=== PATIENT | male | born 1955 | race African-American/Black ===

== ENCOUNTER 2016-09-04 06:58 | Inpatient (IN) | payer MEDICARE, OTHER ==
[~2016-09-04 06:58] MED LIST: 1-ME1LIQ PO; CARV12.52 PO; HYDR100T2 PO; LISI30TA44 PO; NEPHRO PO; NIFE1TAB86 PO; RANI150T PO; REST30CA PO; SEVEL800 PO; VIAG50TA PO; VITA50TA3 PO; ZEPATIER PO
[2016-09-04 09:11] VITALS: BP 134/71; PULSE 61; RESP 18; TEMP 98.5; O2SAT 98
[2016-09-04] MEDS ORDERED: diphenhydrAMINE HCL 50 MG CAP PO PRN (09:15)
[2016-09-04] MEDS ORDERED: MAGNESIUM HYDROXIDE SUSP 30 ML CUP PO PRN (09:15)
[2016-09-04] MEDS ORDERED: BENZTROPINE MESYLATE 2 MG/2 ML VIAL IM PRN (09:15)
[2016-09-04] MEDS ORDERED: LORazepam 0.5 MG TAB PO PRN (09:15)
[2016-09-04] MEDS ORDERED: LORazepam 2 MG/ML VIAL IM PRN (09:15)
[2016-09-04] MEDS ORDERED: ALUMINUM/MAGNESIUM/SIMETH 30 ML CUP PO PRN (09:15)
[2016-09-04] MEDS ORDERED: BENZTROPINE MESYLATE 1 MG TAB PO PRN (09:15)
[2016-09-04] MEDS ORDERED: ACETAMINOPHEN 325 MG TAB PO PRN ×2 (09:15→15:30)
[2016-09-04] MEDS: hydrALAZINE HCL 100 MG TAB PO SCH ×3 (11:35→19:22)
[2016-09-04] MEDS: CARVEDILOL 12.5 MG TAB PO SCH ×2 (11:36→19:23)
[2016-09-04] MEDS: SEVELAMER CARBONATE 800 MG TAB PO SCH ×2 (11:37→19:22)
[2016-09-04] MEDS ORDERED: SODIUM CHLOR 0.9% 1000 ML INJ 1,000 ML IV PRN ×3 (15:24)
[2016-09-04] MEDS ORDERED: ALBUMIN HUMAN 25% 25 GM/100 ML BAGP IV PRN (15:30)
[2016-09-04] MEDS ORDERED: hydrOXYzine HCL 25 MG TAB PO PRN (15:30)
[2016-09-04] MEDS ORDERED: NITROGLYCERIN 0.4 MG SL 25 TABS/BTL SL PRN (15:30)
[2016-09-04] MEDS ORDERED: HEPARIN SODIUM - IV 10,000 UNITS/10 ML VIAL IVF PRN (15:30)
[2016-09-04] MEDS ORDERED: GENTAMICIN SULFATE (DIALYSIS USE ONLY) 20 MG/2 ML VIAL IV PRN (15:30)
[2016-09-04] MEDS ORDERED: ONDANSETRON HCL 4 MG/2 ML VIAL IV PRN (15:30)
[2016-09-04] MEDS ORDERED: GELATIN 12 MM/7 MM FOAM TOP PRN (15:30)
[2016-09-04] MEDS ORDERED: diphenhydrAMINE HCL 25 MG CAP PO PRN (15:30)
[2016-09-04] MEDS ORDERED: cloNIDine HCL 0.1 MG TAB PO PRN (15:30)
[2016-09-04] MEDS ORDERED: HEPARIN SODIUM - IV 10,000 UNITS/10 ML VIAL PRN (15:30)
[2016-09-04] MEDS ORDERED: MANNITOL 12.5 GM/50 ML VIAL IV PRN (15:30)
[2016-09-04] MEDS ORDERED: SODIUM CHLORIDE 0.9% FLUSH 10 ML FLUSH IV FLUSH PRN (15:30)
--- NOTE | 2016-09-04 15:31 | HHI.HP ---
Provisional Diagnosis Admission Date Sep 04, 2016 at 08:46 Helen I. 1. Major depressive disorder, single episode, moderate 2. Unspecified anxiety disorder Helen II. Deferred Helen V. GAF 45 presently Certification of Person's Competence To Provide Express and Informed Consent I have personally examined Marques Astorga , a person being served at [facility] on, Sep 04, 2016 15:10. Express and informed consent means consent voluntarily given in writing, by a competent person, after sufficient explanation and disclosure of the subject matter involved to enable the person to make a knowing and willful decision without any element of force, fraud, deceit, duress, or other form of constraint or coercion. This person is 18 years of age or older, is not now known to be incompetent to consent to treatment with a guardian advocate, and does not have a health care surrogate or proxy currently making medical treatment decisions. I have found this person to be one of the following: [x] Competent to provide express and informed consent, as defined above, for voluntary admission to this facility and is competent to provide express and informed consent for treatment. He/she has the consistent capacity to make well reasoned, willful, and knowing decisions concerning his or her medical or mental health treatment. The person fully and consistently understands the purpose of the admission for examination/placement and is fully capable of personally exercising all rights assured under [place] Incompetent to provide express and informed consent to voluntary admission, and this is incompetent to provide express and informed consent to treatment. The person must be transferred to involuntary status and a petition for a guardian advocate filed with the Circuit Court. [] Refusing to provide express and informed consent to voluntary admission but is competent to provide express and informed consent for treatment. The person must be discharged or transferred to involuntary status. Form shall be completed within 24 hours of a person's arrival at the receiving facility and filed in the clinical record of each person: 1. Admitted on a voluntary basis 2. Permitted to provide express and informed consent to his/her own treatment 3. Allowed to transfer from involuntary to voluntary status 4. Prior to permitting a person to consent to his or her own treatment after having been previously found incompetent to consent to treatment. History of Present Illness Capacity: Has Capacity HPI Mr. Astorga is a 61-year-old male with a reported history of anxiety who presents in transfer from [facility] under a Johnson act alleging suicidal ideation. Documentation from [facility] reviewed. The patient presented there complaining of 3 days of suicidal ideation. Reviewing our own electronic medical record, I see no prior psychiatric contact within our system. Patient seen and examined. Chart reviewed. Case discussed with nursing staff. On my examination today, the patient says that he has been feeling increasingly depressed since going on dialysis in 2006. He says that he feels "stuck." He endorses fatigue. Anhedonia present. Sleep disrupted. Denies SI/ HI at this time. Remains hopeful about the future. Also describes anxiety, "like I'm shaking on the inside." No panic. Tried Ativan PRN but did not find it helpful. No AVH. No psychotic symptoms. Remainder of the psychiatric ROS is negative. Complains of chronic back pain. Otherwise no physical complaints. Past psychiatric history: The patient reports a history of anxiety. He has previously followed with a Dr. Taylor at the [place]. He apparently briefly tried Zoloft but didn't like how it made him feel and has not followed up for further medication management. He denies any history of psychiatric admissions. Denies any history of suicide attempts. Family history: Patient denies a family history of serious mental illness, substance use disorder or suicide. Chemical dependency history: The patient denies any history of abuse of drugs or alcohol. Social history: The patient is from [place]. 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 He is also 100% service connected having served in the [employer] He says that his renal disease is thought to be related to contaminated water he had a camp [facility]. . No children. No legal issues. He is a [employer]. No reported access to guns or firearms. Review of Systems Except as stated in HPI: all other systems reviewed are Neg Past Psych History Psychological trauma history No reported trauma history to me Violence risk - others (6 mos) Lower imminent risk. No homicidal ideation. Violence risk - self (6 mos) Indeterminate. Recent suicidal ideation, now apparently resolved. However, patient remains depressed. Substance Abuse History Drugs/Alcohol past 12 months See above. Past Family Social History Coded Allergies: Percocet (Verified Adverse Reaction, Intermediate, Itching, 09/10/15) Past Medical History Includes a history of end-stage renal disease on Wednesday, Wednesday, Wednesday hemodialysis. See electronic medical record Reported Medications [Zepatier] No Conflict Check Po Daily ELBASVIR/GRAZOPREVIR 50/100MG PT TAKES MED DAILY FOR HEP C PROTOCOL 09/06/15 Sevelamer Carbonate (Renvela)800 Mg [id number] Mg PO TID *TAKE WITH MEALS* 09/06/15 Sildenafil Citrate (Viagra)50 Mg Tab50 Mg PO DIRECTED 09/06/15 Ranitidine 150 mg 150 Mg Tab1 Tab PO BID PRN (UPSET STOMACH) 09/06/15 Vitamin B Cmplx/Vit C/Folic Ac (Nephro-Angela Rx)1 Cap Tab1 Cap PO DAILY 09/06/15 Temazepam 30 mg (Restoril 30 mg)30 Mg Cap1 Cap PO HS 09/06/15 Pyridoxine Hcl (Vit B-6)50 Mg Tab50 Mg PO DAILY 09/06/15 Carvedilol 12.5 mg 12.5 Mg Tab2 Tab PO BID 09/06/15 1-Methyl 2-Pyrrolidone (Bulk) (1-Methyl 2-Pyrrolidinone)10 Mg Tab1 Tab PO DAILY 09/06/15 Nifedipine (Nifedipine Er)60 Mg Tab60 Mg PO DAILY 09/06/15 Lisinopril 30 mg 30 Mg Tab1 Tab PO DAILY 09/06/15 Hydralazine Hcl (Hydralazine HCl)100 Mg [id number] Mg PO Q8 09/06/15 Current Medications Medications (Trade) Dose Ordered Sig/Humera Route Start Time Stop Time Status Last Admin (Ativan) 0.5 mg Q12H PRN PO 09/04/16 09:15 09/04/16 11:55 (Ativan Inj) 0.5 mg Q12H PRN IM 09/04/16 09:15 (Benadryl) 50 mg HS PRN PO 09/04/16 09:15 (Tylenol) 650 mg Q4H PRN PO 09/04/16 09:15 (Milk Of Magnesia Liq) 30 ml DAILY PRN PO 09/04/16 09:15 (Mag-Al Plus Susp Liq) 30 ml Q6H PRN PO 09/04/16 09:15 (Habitrol 21 Mg Patch.24 Hr) 1 patch DAILY T-DERMAL 09/05/16 09:00 (Cogentin) 1 mg Q12H PRN PO 09/04/16 09:15 (Cogentin Inj) 1 mg Q12H PRN IM 09/04/16 09:15 Miscellaneous Information 1 DAILY T-DERMAL 09/06/16 09:00 (Coreg) 25 mg BID PO 09/04/16 21:00 (Apresoline) 100 mg Q8H PO 09/04/16 10:00 09/04/16 11:35 (Procardia Xl) 60 mg DAILY PO 09/05/16 09:00 (Vitamin B6) 50 mg DAILY PO 09/05/16 09:00 (Renvela) 800 mg TID PO 09/04/16 13:00 09/04/16 11:37 (Restoril) 30 mg HS PO 09/04/16 21:00 (Nephrocaps) 1 cap DAILY PO 09/05/16 09:00 (Prinivil) 30 mg DAILY PO 09/05/16 09:00 Patient's Strengths (min. 2) In a monitored setting. Verbally fluent. Physical Exam Physical exam completed by ED provider at outside hospital. On my examination today, the patient appears to be in mild distress due to back pain. No abnormal motor movements noted. Labs and vitals reviewed: Vital Signs Vital Signs Date Time Temp Pulse Resp B/P Pulse Ox O2 Delivery O2 Flow Rate FiO2 09/04/16 09:11 98.5 61 18 134/71 98 Lab Results Labs from outside hospital reviewed: CMP reveals creatinine of 13.24, BUN of 60 and alkaline phosphatase of 157. CBC reveals hemoglobin of 11.6. Alcohol level undetectable. Patient is anuric and so could not provide urine for urine toxicology. Mental Status Examination Patient is casually dressed. He is well groomed. He is awake and alert and oriented to person and hospital at least. No evidence of delirium. No motor abnormalities noted. Speech is within normal limits for rate, tone and volume. Language and fund of knowledge seemed average. Focus and concentration intact. Memory grossly intact on clinical exam. Mood depressed and affect restricted. Thought process linear. No loosening of associations. No delusions elicited. Denies audiovisual hallucinations. Denies suicidal or homicidal ideation, intent or plan. Insight and judgment are fair. Assessment & Plan Problem List: (1) Major depressive disorder, single episode, moderate ICD Code: F32.1 (2) Anxiety disorder ICD Code: F41.9 Assessment & Plan This is a 61-year-old Brittani male with psychiatric history as detailed above who presents in transfer from outside hospital under a Johnson act. On my examination today, the patient reports worsening depression since he was forced to go onto hemodialysis about 6 years ago. He has previously been treated for anxiety but never for depression. He endorses recent suicidal ideation, although he denies any suicidal ideation now. Patient requires psychiatric admission at this time for observation and stabilization. Admit inpatient. Voluntary status. Consult to nephrology and to the hospitalist for management of his chronic medical issues. For low mood, start Remeron 7.5mg qHS given issues with sleep. If ineffective, might consider SNRI or TCA given chronic pain issues. Renally dosed Atarax as needed for anxiety. Vitals every shift. Counselor to see. Disposition planning. Estimated length of stay: 3-5 days. Discharge Planning Pending stabilization Request HC Surrog/Guard Advoc?: No Problem Qualifiers (1) Anxiety disorder: Qualified Code: F41.9 - Anxiety disorder, unspecified type Karlo Tiwari MD Sep 04, 2016 15:30
[2016-09-04] MEDS ORDERED: PILL SPLITTER OTHER PRN (15:45)
--- NOTE | 2016-09-04 17:09 | MB ---
cc: PEEWEE SIMPSON MD DATE OF CONSULTATION: 09/04/2016 REASON FOR CONSULTATION: End-stage renal disease on hemodialysis for management. HISTORY OF PRESENT ILLNESS This is a 61-year-old male with past medical history of hypertension, diabetes mellitus. History of depression, end-stage renal disease on hemodialysis since 2010 was transferred here from [place] to the psych department for management. I was called to see the patient for the management of hemodialysis. He has been on hemodialysis three times per week Wednesday, Wednesday and Wednesday. The patient had last hemodialysis, Wednesday. He has been following and known by <<0:55>> Erika and has a right arm AV fistula through which he is getting his dialysis. The patient denies any shortness of breath. He has this chronic back pain. There is no nausea or vomiting. No abdominal pain. PAST MEDICAL HISTORY 1. Hypertension 2. Diabetes mellitus 3. Chronic anemia 4. End-stage renal disease on hemodialysis 5. Chronic back pain. PAST SURGICAL HISTORY Right arm AV fistula surgery. REVIEW OF SYSTEMS There is no history of fever. No sore throat. No headache, dizziness or blurring of vision. No chest pain. No palpitation. No nausea, vomiting is chronic back pain. There is no abdominal pain. No history of diarrhea. FAMILY HISTORY: Family history is not available. ALLERGIES PERCOCET MEDICATIONS Currently 1. He is on carvedilol 25 mg b.i.d. 2. Nicotine patch. 3. Nifedipine of 60 mg once a day prior oxygen 50 mg daily. 4. Capoten capsule daily. 5. Lisinopril 30 mg once a day and stools 30 mg daily. On 7.5 mg q.h.s. 6. Hydralazine 100 mg q. 8-hour and 810 mg t.i.d. 7. Potassium phosphate. 8. Potassium chloride as needed. 9. Morphine as needed. PHYSICAL EXAMINATION: IN GENERAL: on examination the patient is awake, alert. He is not in acute distress. VITAL SIGNS: Blood pressure 134/71 temperature 98.5, oxygen saturation 98-100%. HEAD, EYES, EARS, NOSE, AND THROAT: Pupils equal, round, reactive to light and accommodation Equally reacting to light. Nonicteric sclera, conjunctiva normal. NECK: Supple. JVD is not elevated. LUNGS: The patient has bilateral good air entry with occasional wheezing. HEART: Sinus regular rhythm. ABDOMEN: Abdomen is soft lax distended, nontender. Bowel sounds positive. EXTREMITIES: There is no edema in the legs, right arm has a fistula investigation there is no recent investigation done. IMAGING STUDIES The patient has no recent imaging study done. ASSESSMENT 1. End-stage renal disease on hemodialysis. 2. Major depressive disorder 3. Anxiety disorder 4. Hypertension 5. Anemia PLAN: The patient has been on hemodialysis Wednesday, Wednesday and Wednesday. He does not have any recent labs the patient. The patient now on hemodialysis, we had him on 3 liters. His blood pressure is stable so far is tolerating he will need to continue on hemodialysis Wednesday, Wednesday and Wednesday. Follow the labs. Thank you for the consultation. I will follow the patient while he is in the hospital. MD AURE Schneider/babak /4:09 PM /4:53 PM
[2016-09-04 17:46] VITALS: O2SAT 94
[2016-09-04] MEDS: TEMAZEPAM 15 MG CAP PO SCH (19:22)
[2016-09-04] MEDS: MIRTAZAPINE 15 MG TAB PO SCH (19:23)
[2016-09-05 06:00] VITALS: BP 108/60; PULSE 56; RESP 16; TEMP 97.4; O2SAT 95
[2016-09-05] MEDS ORDERED: METHYL PO SCH (09:00)
[2016-09-05] MEDS: NICOTINE 21 MG/24 HR PATCH T-DERMAL SCH (09:00)
[2016-09-05] MEDS: SEVELAMER CARBONATE 800 MG TAB PO SCH ×3 (13:00→18:01)
[2016-09-05] MEDS: CARVEDILOL 12.5 MG TAB PO SCH ×2 (14:34→22:32)
[2016-09-05] MEDS: NIFEdipine 60 MG SUSTAINED RELEASE TAB PO SCH (14:35)
[2016-09-05] MEDS: VITAMIN B CMPLX/VITC/FOLIC AC CAP PO SCH (14:35)
[2016-09-05] MEDS: LISINOPRIL 20 MG TAB PO SCH (14:36)
[2016-09-05] MEDS: hydrALAZINE HCL 100 MG TAB PO SCH ×2 (14:39→18:01)
[2016-09-05] MEDS: PYRIDOXINE HCL 50 MG TAB PO SCH (14:39)
--- NOTE | 2016-09-05 15:34 | HHI.PYPN ---
Subjective Remarks Pt seen and discussed with staff. He remains anxious, but denies SI/HI today. He reports that mood is improved and he is worrying about his health. Hospitalist was consulted due to dizziness and emesis. No behavioral problems on unit Objective Alert: Yes Thurman: Person, Place, Date, Situation Mood: Anxious, Depressed Affect: Restricted Memory Intact: Immediate, Recent, Remote Hallucinations: Other (none) Delusions: No Delusion Type: Other (none) Suicidal: Ideation (denies) Homicidal: Ideation (denies) Insight/Judgment fair Vitals/IOs Vital Signs Date Time Temp Pulse Resp B/P Pulse Ox O2 Delivery O2 Flow Rate FiO2 09/05/16 06:00 97.4 56 16 108/60 95 09/04/16 17:46 21 Intake and Output 09/04/16 09/04/16 09/05/16 08:00 16:00 00:00 Output Total 3000 ml Balance -3000 ml Assessment & Plan Problem List: (1) Major depressive disorder, single episode, moderate ICD Code: F32.1 (2) Anxiety disorder ICD Code: F41.9 Assessment & Plan Continue current tx plan. Estimated LOS: days Justification for Cont. Inpt. monitoring for safety Request HC Surrog/Guard Advoc?: No Problem Qualifiers (1) Anxiety disorder: Qualified Code: F41.9 - Anxiety disorder, unspecified type Lina Da Silva MD Sep 05, 2016 15:34
--- NOTE | 2016-09-05 15:44 | PD.CONS ---
[facility] Request[facility] By [facility]iatry service Reason for Consult Medical management Primary Care Physician Non-Staff Diagnoses: History of Present Illness The patient is a 61-year-old male with past medical history of hypertension, diabetes mellitus says now controlled after he lost weight, ESRD on hemodialysis Wednesday/Wednesday/Wednesday, depression, anxiety, anemia. The patient was transferred to psych department for further management from [facility]. The patient says she was well yesterday however when he woke up in the morning today he felt dizzy. She denies having any chest pain. He says he has unsteady gait as well. Denies palpitations. However he says he has a history of having high heart rate and he is on carvedilol. No diaphoresis,. He says he was able to eat breakfast in the morning however he felt nauseated and vomited after eating. No diarrhea. No abdominal pain. Denies having chest pain. No cough or fever or chills. He had dialysis yesterday. Review of Systems Except as stated in HPI: all other systems reviewed are Neg Past Family Social History Allergies: Coded Allergies: Percocet (Verified Adverse Reaction, Intermediate, Itching, 09/10/15) Past Medical History Hypertension, history of diabetes now controlled. ESRD on hemodialysis, anxiety , depression, anemia. Past Surgical History Right arm A-V fistula Reported Medications Reported Meds & Active Scripts Active Reported [Zepatier] PO DAILY ELBASVIR/GRAZOPREVIR 50/100MG PT TAKES MED DAILY FOR HEP C PROTOCOL Renvela (Sevelamer Carbonate) 800 Mg Tab 800 Mg PO TID *TAKE WITH MEALS* Viagra (Sildenafil Citrate) 50 Mg Tab 50 Mg PO DIRECTED Ranitidine 150 mg (Ranitidine HCl) 150 Mg Tab 1 Tab PO BID PRN Nephro-Angela Rx (Vitamin B Complex/Vit C/Folic Acid) 1 Cap Tab 1 Cap PO DAILY Restoril 30 mg (Temazepam) 30 Mg Cap 1 Cap PO HS Vit B-6 (Pyridoxine HCl) 50 Mg Tab 50 Mg PO DAILY Carvedilol 12.5 mg (Carvedilol) 12.5 Mg Tab 2 Tab PO BID 1-Methyl 2-Pyrrolidinone (1-Methyl 2-Pyrrolidone (Bulk)) 10 Mg Tab 1 Tab PO DAILY Nifedipine Er (Nifedipine) 60 Mg Tab 60 Mg PO DAILY Lisinopril 30 mg (Lisinopril) 30 Mg Tab 1 Tab PO DAILY Hydralazine HCl 100 Mg Tab 100 Mg PO Q8 Family History Both brother and his mother had heart attacks Sister with arrhythmia unspecified Father with ESRD Social History Current tobacco use smoking 1 pack per day for the past 20 years. Denies alcohol use or illicit drug use. Physical Exam Vital Signs Vital Signs Date Time Temp Pulse Resp B/P Pulse Ox O2 Delivery O2 Flow Rate FiO2 09/05/16 06:00 97.4 56 16 108/60 95 09/04/16 17:46 94 21 Physical Exam GENERAL: This is a very pleasant 61-year-old male, well- nourished, well-developed patient, appearing anxious. SKIN: No rashes, ecchymoses or lesions. Cool and dry. HEAD: Atraumatic. Normocephalic. No temporal or scalp tenderness. EYES: Pupils equal round and reactive. Extraocular motions intact. No scleral icterus. No injection or drainage. ENT: Nose without bleeding, purulent drainage or septal hematoma. Throat without erythema, tonsillar hypertrophy or exudate. Uvula midline. Airway patent. NECK: Trachea midline. No JVD or lymphadenopathy. Supple, nontender, no meningeal signs. CARDIOVASCULAR: Regular rate and rhythm without murmurs, gallops, or rubs. RESPIRATORY: Clear to auscultation. Breath sounds equal bilaterally. No wheezes , rales, or rhonchi. GASTROINTESTINAL: Abdomen soft, non-tender, nondistended. No hepato-splenomegaly , or palpable masses. No guarding. MUSCULOSKELETAL: Extremities without clubbing, cyanosis, or edema. No joint tenderness, effusion, or edema noted. No calf tenderness. Negative Homans sign bilaterally. NEUROLOGICAL: Awake and alert. Cranial nerves II through XII intact. Motor and sensory grossly within normal limits. Five out of 5 muscle strength in all muscle groups. Slow speech. Unsteady gait. Assessment and Plan Assessment and Plan 61-year-old male with Major depression. Management per psychiatry Hypertension blood pressure appears controlled at this time. Continue home medications. Noted with bradycardia heart rate mid upper 50, however patient is symptomatic with dizziness. Decrease carvedilol. Consult cardiology He also complained of dizziness in the morning 09/05 nausea or vomiting. Antiemetics as needed. Diabetes mellitus says now controlled after he lost weight, he is not taking any medications. Monitor blood sugar. ESRD on hemodialysis Wednesday/Wednesday/Wednesday nephrology following Dr. Isai Lux likely of chronic disease. Patient says he has a steady gait. We'll order PT for evaluation. We'll also check vitamin D and B12 and folate. Thank you for this consultation, will follow along. Discussed Condition With Patient, nurse Marianna Cleaning MD Sep 05, 2016 15:44
[2016-09-05] MEDS ORDERED: ONDANSETRON HCL 4 MG/2 ML VIAL IV PUSH PRN (16:00)
[2016-09-05] MEDS ORDERED: PROMETHAZINE HCL 25 MG TAB PO PRN (16:00)
--- NOTE | 2016-09-05 17:33 | MB ---
cc: MICAH BARROS MD, MIRELA MD DATE OF CONSULTATION 09/05/16 1956 HISTORY OF PRESENT ILLNESS The patient is a 61-year-old black gentleman I am asked to see for possible symptomatic bradycardia. 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 He is in the psychiatry unit for depression. The patient states that he has been followed for a fast heart rate occurring when he comes off dialysis. He has been on Carvedilol for this. He may have been on diltiazem, although this is unclear and not listed. The patient was started on a new antidepressant yesterday. He did well last night. This morning he noted after breakfast the onset of an imbalance/lightheadedness. This was there constantly no matter what position and is still there now at 5 o'clock in the evening. He notes no cardiopulmonary symptoms otherwise. He did have some nausea and vomiting this morning. The patient's EKGs have shown sinus rhythm with first-degree AV block, poor R-wave progression and left anterior fascicular block. He was mildly bradycardic this morning. PAST MEDICAL HISTORY 1. Hypertension 2. End-stage renal disease on dialysis 3. Depression, 4. Cholecystectomy, 5. Umbilical hernia repair 6. AV fistula 7. Chronic back pain. 8. History of diabetes but this resolved when he lost 170 pounds. 9. He states he had a catheterization 10 years ago which showed normal coronary arteries. ALLERGIES PERCOCET MEDICATIONS Medication list reviewed. IMAGING STUDIES No imaging is done. CARDIOLOGY STUDIES EKGs as above. LABORATORY DATA There are no recent laboratories done that I see. Apparently the patient was unable to have blood drawn. I have conveyed to the staff that this does need to be done tonight or the admitting physician needs to know about this as certainly he is on medications and having symptoms. SOCIAL HISTORY He is and smokes one pack per day and rarely drinks. FAMILY HISTORY Remarkable for a brother with an ME at 49. REVIEW OF SYSTEMS Only remarkable for the above and occasional joint pain. PHYSICAL EXAMINATION VITAL SIGNS: Afebrile. Vital signs stable. GENERAL: He is alert and oriented x3. HEENT: There are no xanthelasma and oral pharyngeal mucosa normal. CHEST: Clear. JVD normal. CARDIAC: S1-S2 no murmurs or gallops. ABDOMEN: Benign. EXTREMITIES: No cyanosis, clubbing or edema. Pulses 2/2 throughout without bruits with 1-2+ pedals. He is not ambulated. ASSESSMENT 1. Dizziness - the patient's blood pressure and heart rate has been normal and this has persisted. This appears to be more a vertigo type process, either related neurologically, ENT or medication. I have spoken to Dr. Cleaning about this. I do not think it is symptomatic bradycardia. 2. Hypertension 3. End-stage renal disease. 4. Tobacco abuse which he has been counseled against. I have discussed the situation with Dr. Cleaning and she will work him up further. Again, I have conveyed to the floor his blood work does need to be done today. Micah Barros MD ASG/ /5:02 PM /5:12 PM
[2016-09-05 18:38] VITALS: BP 183/87; PULSE 57; RESP 16; O2SAT 96
--- NOTE | 2016-09-05 19:14 | EKG ---
Date Performed: 09/05/2016 Time Performed: 12:11:11 PTAGE: 61 years EKG: SINUS BRADYCARDIA WITH BORDERLINE FIRST DEGREE AV BLOCK LEFT AXIS DEVIATION POOR INITIAL AN TERIOR FORCES V1-V3 WHICH MAY BE NORMAL VARIANT, CANNOT COMPLETELY EXCLUDE ANTEROSEPTAL ID OF UNDETER MINED AGE ABNORMAL ECG Compared to PREVIOUS TRACING , SC interval is slightly longer, otherwise no significant change. PREVI OUS TRACIN09/06/2015 11.09 DOCTOR: Bharat Lewis Interpretating Date/Time 09/05/2016 19:12:34
[2016-09-05] MEDS: MIRTAZAPINE 15 MG TAB PO SCH (21:00)
[2016-09-05] MEDS: TEMAZEPAM 15 MG CAP PO SCH (22:32)
[2016-09-06] VITALS: BP 144/87; PULSE 62
[2016-09-06] MEDS: hydrALAZINE HCL 100 MG TAB PO SCH ×3 (02:00→18:06)
[2016-09-06 06:09] VITALS: BP 144/82; PULSE 61; RESP 17; TEMP 98; O2SAT 98
[2016-09-06] MEDS: PYRIDOXINE HCL 50 MG TAB PO SCH (08:28)
[2016-09-06] MEDS: NIFEdipine 60 MG SUSTAINED RELEASE TAB PO SCH (08:28)
[2016-09-06] MEDS: CARVEDILOL 12.5 MG TAB PO SCH ×2 (08:28→20:34)
[2016-09-06] MEDS: SEVELAMER CARBONATE 800 MG TAB PO SCH ×3 (08:29→18:06)
[2016-09-06] MEDS: REMOVE OLD PATCH T-DERMAL SCH (09:00)
[2016-09-06] MEDS: NICOTINE 21 MG/24 HR PATCH T-DERMAL SCH (09:00)
[2016-09-06] MEDS: VITAMIN B CMPLX/VITC/FOLIC AC CAP PO SCH (09:00)
[2016-09-06] MEDS: LISINOPRIL 20 MG TAB PO SCH (09:03)
[2016-09-06 09:45] LABS: BASOPHIL # 0.2 TH/MM3 (0-0.2); BASOPHIL % 2.3 % (0.0-2.0); EOSINOPHIL # 0.6 TH/MM3 (0-0.4); EOSINOPHIL % 7.5 % (0.0-4.0); HEMATOCRIT 37.8 % (39.0-51.0); HEMO FLAGS DIFF FINAL; LYMPH % 20.7 % (9.0-44.0); LYMPHOCYTE # 1.7 TH/MM3 (1.0-4.8); MEAN CELL VOLUME 101.2 FL (80.0-100.0); MEAN CORPUSCULAR HEMOGLOBIN 33.8 PG (27.0-34.0); MEAN CORPUSCULAR HGB CONC 33.4 % (32.0-36.0); MONO % 7.7 % (0.0-8.0); NEUT % 61.8 % (16.0-70.0); PLATELET COUNT 221 TH/MM3 (150-450); RED BLOOD COUNT 3.74 MIL/MM3 (4.50-5.90); RED CELL DISTRIBUTION WIDTH 17.1 % (11.6-17.2)
[2016-09-06 10:09] LABS: ANION GAP 14 MEQ/L (5-15); AST (GOT) 8 U/L (15-37); BICARBONATE 29.1 MEQ/L (21.0-32.0); BLOOD UREA NITROGEN 74 MG/DL (7-18); CHLORIDE 88 MEQ/L (98-107); GLOMERULAR FILTRATION RATE 4 ML/MIN (>89); MAGNESIUM 3.1 MG/DL (1.5-2.5); POTASSIUM 4.1 MEQ/L (3.5-5.1); SODIUM (NA) 131 MEQ/L (136-145)
[2016-09-06 10:36] LABS: ALKALINE PHOSPHATASE 151 U/L (45-117); ALT (GPT) 17 U/L (12-78); FERRITIN 776 NG/ML (26-388); TOTAL BILIRUBIN ADULT 0.5 MG/DL (0.2-1.0); TRANSFERRIN IRON PROFILE 266 MG/DL (200-360)
[2016-09-06] MEDS ORDERED: ERGOCALCIFEROL (VIT D2) 50,000 UNIT CAP PO SCH (15:00)
--- NOTE | 2016-09-06 15:28 | HHI.PYPN ---
Subjective Remarks Pt seen and discussed with staff. He is improved in mood today. He states that he stopped going to therapy and attending therapy groups at [facility] prior to hospitalization. He states that he would like to utilize psychotherapy instead of medications. No SI/HI Physically feeling better and vertigo has resolved. Objective Alert: Yes [place]: Person, Place, Date, Situation Mood: Calm, Depressed Affect: Restricted Memory Intact: Immediate, Recent, Remote Hallucinations: Other (none) Delusions: No Delusion Type: Other (none) Suicidal: Ideation (denies) Homicidal: Ideation (denies) Insight/Judgment limited Labs Test 09/06/16 08:55 White Blood Count 8.0 TH/MM3 Red Blood Count 3.74 MIL/MM3 Hemoglobin 12.6 GM/DL Hematocrit 37.8 % Mean Corpuscular Volume 101.2 FL Mean Corpuscular Hemoglobin 33.8 PG Mean Corpuscular Hemoglobin 33.4 % Concent Red Cell Distribution Width 17.1 % Platelet Count 221 TH/MM3 Mean Platelet Volume 7.7 FL Neutrophils (%) (Auto) 61.8 % Lymphocytes (%) (Auto) 20.7 % Monocytes (%) (Auto) 7.7 % Eosinophils (%) (Auto) 7.5 % Basophils (%) (Auto) 2.3 % Neutrophils # (Auto) 5.0 TH/MM3 Lymphocytes # (Auto) 1.7 TH/MM3 Monocytes # (Auto) 0.6 TH/MM3 Eosinophils # (Auto) 0.6 TH/MM3 Basophils # (Auto) 0.2 TH/MM3 CBC Comment DIFF FINAL Differential Comment Sodium Level 131 MEQ/L Potassium Level 4.1 MEQ/L Chloride Level 88 MEQ/L Carbon Dioxide Level 29.1 MEQ/L Anion Gap 14 MEQ/L Blood Urea Nitrogen 74 MG/DL Creatinine 14.85 MG/DL Estimat Glomerular Filtration 4 ML/MIN Rate Random Glucose 164 MG/DL Calcium Level 9.5 MG/DL Magnesium Level 3.1 MG/DL Iron Level 167 MCG/DL Total Iron Binding Capacity 372 MCG/DL Percent Iron Saturation 44.8 % Ferritin 776 NG/ML Total Bilirubin 0.5 MG/DL Aspartate Amino Transf 8 U/L (AST/SGOT) Alanine Aminotransferase 17 U/L (ALT/SGPT) Alkaline Phosphatase 151 U/L Total Protein 8.6 GM/DL Albumin 4.0 GM/DL Vitamin B12 Level 1776 PG/ML 25-Hydroxy Vitamin D Total 9.8 ng/ML Folate GREATER THAN 20.0 NG/ML Vitals/IOs Vital Signs Date Time Temp Pulse Resp B/P Pulse Ox O2 Delivery O2 Flow Rate FiO2 09/06/16 06:09 98.0 61 17 144/82 98 09/04/16 17:46 21 Assessment & Plan Problem List: (1) Major depressive disorder, single episode, moderate ICD Code: F32.1 (2) Anxiety disorder ICD Code: F41.9 Assessment & Plan Continue current tx plan. Justification for Cont. Inpt. risk of decompensaton Request HC Surrog/Guard Advoc?: No Problem Qualifiers (1) Anxiety disorder: Qualified Code: F41.9 - Anxiety disorder, unspecified type Lina Da Silva MD Sep 06, 2016 15:28
[2016-09-06 16:51] VITALS: BP 156/82; PULSE 65; RESP 18; TEMP 98.6; O2SAT 98
--- NOTE | 2016-09-06 18:30 | HHI.PR ---
Subjective Remarks In nad. Patient denies having any chest pain. Trops were neg, discussed with the patient. Patient say she did not sleep well last night. Says he did not fee lightheaded today. No chest pain , diaphoresis. No sob. The [facility], benzodiazepines as they might be addictive and also he is afraid will diminish his ability to drive. Says she is driving himself to HD and would like to continue that, however he is afraid taking this meds might impair his ability to drive. Patient denies any cp, sob, n/v/d/c. Objective Vitals Vital Signs Date Time Temp Pulse Resp B/P Pulse Ox O2 Delivery O2 Flow Rate FiO2 09/06/16 16:51 98.6 65 18 156/82 98 09/06/16 06:09 98.0 61 17 144/82 98 09/06/16 00:00 62 144/87 09/05/16 18:38 57 16 183/87 96 Result Diagram: 09/06/16 0855 09/06/16 0855 Objective Remarks GENERAL: This is a very pleasant 61-year-old male, well- nourished, well-developed patient, appearing anxious. CARDIOVASCULAR: Regular rate and rhythm without murmurs, gallops, or rubs. RESPIRATORY: Clear to auscultation. Breath sounds equal bilaterally. No wheezes , rales, or rhonchi. GASTROINTESTINAL: Abdomen soft, non-tender, nondistended. No hepato-splenomegaly , or palpable masses. No guarding. MUSCULOSKELETAL: Extremities without clubbing, cyanosis, or edema. No joint tenderness, effusion, or edema noted. No calf tenderness. Negative Homans sign bilaterally. NEUROLOGICAL: Awake and alert. Cranial nerves II through XII intact. Motor and sensory grossly within normal limits. Five out of 5 muscle strength in all muscle groups. Slow speech. Unsteady gait. A/P Assessment and Plan 61-year-old male with Major depression. Management per psychiatry Hypertension blood pressure appears controlled at this time. Continue home medications. Noted with bradycardia heart rate mid upper 50, however patient is symptomatic with dizziness. Decrease carvedilol. Consult cardiology,I discussed with [facility] cardiology, doesn't hink is cardiac related. decrease dose of carvedilol and monitor on tele. Thinks He also complained of dizziness in the morning 09/05 nausea or vomiting. Antiemetics as needed. Dizziness, nausea/vomiting resolved. Diabetes mellitus says now controlled after he lost weight, he is not taking any medications. Monitor blood sugar. ESRD on hemodialysis Wednesday/Wednesday/Wednesday nephrology following Dr. Alex. Worsening Cr level noted today of 14. Nephro ff. Plan for HD tomorrow. Anemia likely of chronic disease. Patient says he has a steady gait. We'll order PT for evaluation. We'll also check vitamin D and B12 and folate. Thank you for this consultation, will follow along. Discussed Condition With Patient, nurse Marianna Cleaning MD Sep 06, 2016 18:30
[2016-09-06] MEDS: MIRTAZAPINE 15 MG TAB PO SCH (20:34)
[2016-09-06] MEDS: TEMAZEPAM 15 MG CAP PO SCH (20:34)
[2016-09-07] MEDS: hydrALAZINE HCL 100 MG TAB PO SCH ×3 (02:00→17:40)
[2016-09-07 06:00] VITALS: BP 106/55; PULSE 68; RESP 17; TEMP 98.2; O2SAT 96
[2016-09-07] MEDS: NICOTINE 21 MG/24 HR PATCH T-DERMAL SCH (09:00)
[2016-09-07] MEDS: REMOVE OLD PATCH T-DERMAL SCH (09:00)
[2016-09-07] MEDS: CARVEDILOL 12.5 MG TAB PO SCH (09:00)
[2016-09-07] MEDS: VITAMIN B CMPLX/VITC/FOLIC AC CAP PO SCH (09:00)
[2016-09-07] MEDS: NIFEdipine 60 MG SUSTAINED RELEASE TAB PO SCH (09:00)
[2016-09-07] MEDS: SEVELAMER CARBONATE 800 MG TAB PO SCH ×3 (09:00→17:40)
[2016-09-07] MEDS: LISINOPRIL 20 MG TAB PO SCH (09:00)
[2016-09-07] MEDS: PYRIDOXINE HCL 50 MG TAB PO SCH (09:00)
[2016-09-07] MEDS ORDERED: ERGO1CAP30 PO (11:40)
[2016-09-07] MEDS ORDERED: CARV12.5 PO (11:40)
--- NOTE | 2016-09-07 11:41 | HHI.DS ---
Psychiatry Discharge Summary Inpatient Psychiatric care?: Yes Advance Directive: No Reason Not Provided: paper provided to patient Mental Health AdvanceDirective: No Health Care Proxy: No Admission Admission Date Sep 04, 2016 at 08:46 Admission Diagnosis: (1) Major depressive disorder, single episode, moderate ICD Code: F32.1 (2) Anxiety disorder ICD Code: F41.9 Brief History Mr. Astorga is a 61-year-old male with a reported history of anxiety who presents in transfer from [facility] under a Johnson act alleging suicidal ideation. Documentation from [facility] reviewed. The patient presented there complaining of 3 days of suicidal ideation. Reviewing our own electronic medical record, I see no prior psychiatric contact within our system. Patient seen and examined. Chart reviewed. Case discussed with nursing staff. On my examination today, the patient says that he has been feeling increasingly depressed since going on dialysis in 2006. He says that he feels "stuck." He endorses fatigue. Anhedonia present. Sleep disrupted. Denies SI/ HI at this time. Remains hopeful about the future. Also describes anxiety, "like I'm shaking on the inside." No panic. Tried Ativan PRN but did not find it helpful. No AVH. No psychotic symptoms. Remainder of the psychiatric ROS is negative. Complains of chronic back pain. Otherwise no physical complaints. Past psychiatric history: The patient reports a history of anxiety. He has previously followed with a Dr. [facility] at the [facility]. He apparently briefly tried Zoloft but didn't like how it made him feel and has not followed up for further medication management. He denies any history of psychiatric admissions. Denies any history of suicide attempts. Family history: Patient denies a family history of serious mental illness, substance use disorder or suicide. Chemical dependency history: The patient denies any history of abuse of drugs or alcohol. Social history: The patient is from [place]. 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 He is also 100% service connected having served in the [employer]. He says that his renal disease is thought to be related to contaminated water he had a camp [facility]. . No children. No legal issues. He is a Christianity. No reported access to guns or firearms. Tobacco Use In Past 30 Days: 5 or More Cigarettes/Day Alcohol Use: Never Hospital Course Patient was admitted to a locked, inpatient psychiatric unit. A general medical consultation was obtained, and a nephrology consultation were obtained as the patient is on hemodialysis Wednesday, Wednesday, Wednesday. Cardiology consultation was subsequently requested for possible symptomatic bradycardia, although Dr. Barros did not feel that the patient was experiencing symptomatic bradycardia. Psychotropic medication management was attempted. Patient experienced nausea that he attributed to Remeron, and so he wishes to discontinue this medication on discharge. There was no evidence of any suicidality or homicidality on the inpatient unit. Patient remained in good behavioral control. Patient signed voluntarily into the hospital. On the day of discharge: Patient seen and examined with nurse. Chart reviewed. Case discussed with nursing staff who described the patient as cheerful and no behavioral problem. On my examination today, the patient is in good spirits. He denies any suicidal or homicidal ideation, intent or plan on direct questioning and contracts for safety. He believes that we have met his therapeutic goals and is requesting discharge from the inpatient psychiatric unit today. He still does not wish to continue the Remeron on discharge. He would like a psychotherapeutic referral and support group referral, and I have asked counselor to provide these to him. No depressive or hypomanic/manic symptoms appreciated. No psychotic symptoms. He has no physical complaints at this time. Nausea is resolved. Weighing the acute, chronic, and protective factors and based on the available evidence, I waste management recycling technician to a reasonable degree of medical certainty that the patient is at low imminent risk of harm to self or others from a mental illness as defined under the Johnson act, and his level of function is adequate for outpatient care. I have offered to retain the patient further on the inpatient unit for the purpose of selecting a different antidepressant/antianxiety agent, but the patient has declined and is requesting discharge today. He does not meet criteria for involuntary psychiatric hospitalization at this time. I have discussed the case with Dr. Cleaning, who tells me the patient is medically cleared for discharge from her standpoint. The patient is due for hemodialysis and will be discharged thereafter so long as he is cleared by nephrology. Patient is to follow-up psychiatrically as arranged by counselor. Patient is to follow-up with primary care and specialists. I have counseled the patient regarding warning signs for need to return to the psychiatric emergency room as part of a general safety plan. Results Blood Pressure 106 / 55 Vital Signs Date Time Temp Pulse Resp B/P Pulse Ox O2 Delivery O2 Flow Rate FiO2 09/07/16 06:00 98.2 68 17 106/55 96 09/04/16 17:46 21 Laboratory Tests Test 09/06/16 08:55 Red Blood Count 3.74 MIL/MM3 (4.50-5.90) Hemoglobin 12.6 GM/DL (13.0-17.0) Hematocrit 37.8 % (39.0-51.0) Mean Corpuscular Volume 101.2 FL (80.0-100.0) Eosinophils (%) (Auto) 7.5 % (0.0-4.0) Basophils (%) (Auto) 2.3 % (0.0-2.0) Eosinophils # (Auto) 0.6 TH/MM3 (0-0.4) Sodium Level 131 MEQ/L (136-145) Chloride Level 88 MEQ/L (98-107) Blood Urea Nitrogen 74 MG/DL (7-18) Creatinine 14.85 MG/DL (0.60-1.30) Estimat Glomerular Filtration 4 ML/MIN (>89) Rate Random Glucose 164 MG/DL (74-106) Magnesium Level 3.1 MG/DL (1.5-2.5) Ferritin 776 NG/ML (26-388) Aspartate Amino Transf 8 U/L (15-37) (AST/SGOT) Alkaline Phosphatase 151 U/L (45-117) Total Protein 8.6 GM/DL (6.4-8.2) Vitamin B12 Level 1776 PG/ML (193-986) 25-Hydroxy Vitamin D Total 9.8 ng/ML (30-100) Folate GREATER THAN 20.0 NG/ML (3.1-17.5) Summary of Procedures Routine scheduled hemodialysis Imaging None done Pending results at discharge: No Medications # of Antipsychotic meds at D/C: 0 Approp Antipsych med options 1 - Minimum of three failed multiple trials of monotherapy. 2 - Documented plan to taper to monotherapy due to previous use of multiple meds OR cross-taper in progress at D/C. 3 - Documentation of augmentation of Clozapine. 4 - Justification other than those listed in allowable values 1-3, document here : Discharge Discharge Date: Sep 07, 2016 Discharge Diagnosis: (1) Adjustment disorder with mixed anxiety and depressed mood Diagnosis: Principal (improved versus admission) ICD Code: F43.23 Mental Status Exam at Disch Patient is casually dressed. He is well groomed. Patient is awake and alert and oriented x3. No evidence of delirium. No motor abnormalities appreciated. Speech is within normal limits for rate, tone, volume. Language and fund of knowledge average. Focus and concentration intact. Memory grossly intact on clinical exam. Mood is good. Affect is full and reactive. Thought process linear. No delusions elicited. Denies audiovisual hallucinations and does not appear internally stimulated. Denies suicidal or homicidal ideation, intent, or plan and contracts for safety. Insight and judgment seem fair. Pt Condition on Discharge: Stable Discharge Disposition: Discharge Home Discharge Instructions Diet Instructions: As Tolerated, No Restrictions Activities you can perform: Weight Bearing as Salty Scheduled Appointment: as per counselor's notes New Orders: VITAMIN D,25-HYDROXY - 2 Months New Medications: Carvedilol (Coreg) 12.5 Mg Tab 12.5 MG PO BID Health Days 15 Ref 1 TAB Ergocalciferol (Ergocalciferol) 50,000 Unit Cap 74232 UNITS PO Q7D Given on Wednesday. Hypovitaminosis D #7 Ref 0 CAP Continued Medications: 1-Methyl 2-Pyrrolidone (Bulk) (1-Methyl 2-Pyrrolidinone) 10 Mg Tab 1 TAB PO DAILY TAB Hydralazine Hcl (Hydralazine HCl) 100 Mg Tab 100 MG PO Q8 TAB Lisinopril 30 mg (Lisinopril 30 mg) 30 Mg Tab 1 TAB PO DAILY TAB Nifedipine (Nifedipine Er) 60 Mg Tab 60 MG PO DAILY TAB Pyridoxine Hcl (Vit B-6) 50 Mg Tab 50 MG PO DAILY TAB Ranitidine 150 mg (Ranitidine 150 mg) 150 Mg Tab 1 TAB PO BID PRN UPSET STOMACH TAB Sevelamer Carbonate (Renvela) 800 Mg Tab 800 MG PO TID *TAKE WITH MEALS* TAB Sildenafil Citrate (Viagra) 50 Mg Tab 50 MG PO DIRECTED TAB Temazepam 30 mg (Restoril 30 mg) 30 Mg Cap 1 CAP PO HS CAP Vitamin B Cmplx/Vit C/Folic Ac (Nephro-Angela Rx) 1 Cap Tab 1 CAP PO DAILY TAB ([Zepatier]) PO DAILY ELBASVIR/GRAZOPREVIR 50/100MG PT TAKES MED DAILY FOR HEP C PROTOCOL Discontinued Medications: Carvedilol 12.5 mg (Carvedilol 12.5 mg) 12.5 Mg Tab 2 TAB PO BID TAB Discharge Time <= 30 minutes Discharge/Advance Care Plan Health Problems: (1) Major depressive disorder, single episode, moderate (2) Anxiety disorder Goals to promote your health * To prevent worsening of your condition and complications * To maintain your health at the optimal level Directions to meet your goals Take your medications as prescribed Follow your dietary instruction Follow activity as directed Keep your appointments as scheduled Take your immunizations and boosters as scheduled If your symptoms worsen call your PCP, if no PCP go to Urgent Care Center or Emergency Room For 31/08 questions related to your inpatient stay or results of tests pending at discharge, please contact Dr. Karlo Tiwari at Smoking is Dangerous to Your Health. Avoid second hand smoking Problem Qualifiers (1) Anxiety disorder: Qualified Code: F41.9 - Anxiety disorder, unspecified type Karlo Tiwari MD Sep 07, 2016 11:41
--- NOTE | 2016-09-07 13:02 | HHI.PR ---
Subjective Remarks Patient is ambulating from the recreational improving. Says he feels much better today. No headaches, no dizziness, he is walking better no unsteady gait. Denies feeling weak. His plan for dialysis today. Denies chest pain, shortness of breath, nausea, vomiting, diarrhea or constipation. Objective Vitals Vital Signs Date Time Temp Pulse Resp B/P Pulse Ox O2 Delivery O2 Flow Rate FiO2 09/07/16 06:00 98.2 68 17 106/55 96 09/06/16 16:51 98.6 65 18 156/82 98 I/O 09/06/16 09/06/16 09/06/16 09/07/16 09/07/16 09/07/16 07:00 15:00 23:00 07:00 15:00 23:00 Intake Total 180 ml Balance 180 ml Intake Oral 180 ml Result Diagram: 09/06/1685409/06/16854 Objective Remarks GENERAL: This is a very pleasant 61-year-old male, well- nourished, well-developed patient, appearing anxious. CARDIOVASCULAR: Regular rate and rhythm without murmurs, gallops, or rubs. RESPIRATORY: Clear to auscultation. Breath sounds equal bilaterally. No wheezes , rales, or rhonchi. GASTROINTESTINAL: Abdomen soft, non-tender, nondistended. No hepato-splenomegaly , or palpable masses. No guarding. MUSCULOSKELETAL: Extremities without clubbing, cyanosis, or edema. No joint tenderness, effusion, or edema noted. No calf tenderness. Negative Homans sign bilaterally. NEUROLOGICAL: Awake and alert. Cranial nerves II through XII intact. Motor and sensory grossly within normal limits. Five out of 5 muscle strength in all muscle groups. Slow speech. Unsteady gait. A/P Assessment and Plan 61-year-old male with Major depression. Management per psychiatry Hypertension blood pressure appears controlled at this time. Continue home medications. Noted with bradycardia heart rate mid upper 50, however patient is symptomatic with dizziness. Decrease carvedilol. Consult cardiology,I discussed with [facility], doesn't hink is cardiac related. decrease dose of carvedilol and monitor on tele. Thinks He also complained of dizziness in the morning 09/05 nausea or vomiting. Antiemetics as needed. Dizziness, nausea/vomiting resolved. Diabetes mellitus says now controlled after he lost weight, he is not taking any medications. Monitor blood sugar. ESRD on hemodialysis Wednesday/Wednesday/Wednesday nephrology following Dr. Alex. Worsening Cr level noted today of 14. Nephro ff. Plan for HD tomorrow. Anemia likely of chronic disease. Patient says he has a steady gait. We'll order PT for evaluation. We'll also check vitamin D and B12 and folate. Thank you for this consultation, will follow along. Discussed Condition With Patient, nurse, psychiatry service The patient appears stable. He needs hemodialysis before discharge. From hospitalist standpoint the patient can be discharged, to follow-up as outpatient with PCP and consultants. Marianna Cleaning MD Sep 07, 2016 13:02
--- NOTE | 2016-09-07 17:09 | HHI.NPPN ---
Subjective History of Present Illness 61-year-old male with past medical history of hypertension, diabetes mellitus. History of depression, end-stage renal disease on hemodialysis since 2010 was transferred here from [place] to the psych department for management. I was called to see the patient for the management of hemodialysis. He has been on hemodialysis three times per week Wednesday, Wednesday and Wednesday. Additional Remarks Patient is now on HD, no SOB. Review of Systems Respiratory Lungs: SOB Cardiovascular Cardiac: Edema, ARAIZA Objective Data Data 09/06/16 09/07/16 19:00 07:00 Intake Total 180 ml Balance 180 ml Intake Oral 180 ml Vital Signs Date Time Temp Pulse Resp B/P Pulse Ox O2 Delivery O2 Flow Rate FiO2 09/07/16 06:00 98.2 68 17 106/55 96 -: 09/06/16 0855 09/06/16 0855 Physical Exam General Appearance: Well Nourished, No Acute Distress, Comfortable Eyes Eye Exam: Pupils Equal Throat Throat Exam: Oral Mucosa [place] & Moist Pulmonary Resp Exam: Clear Bilaterally, Rhonchi, Decreased Bases Cardiology CV Exam: Regular, Normal Sinus Rhythm Gastrointestinal/Abdomen GI Exam: Soft, Non-Tender Extremeties Extremities Exam: Trace Edema Neurologic Neuro Exam: Alert, Awake, Oriented Psychiatric Psych Exam: Appropriate Responses Assessment/Plan Assessment Summary: Anemia of CKD, Hypertension, End Stage Renal Disease Problem List: (1) Anxiety disorder (2) Major depressive disorder, single episode, moderate (3) Low vitamin D level (4) Adjustment disorder with depressed mood (5) Adjustment disorder with mixed anxiety and depressed mood (6) End-stage renal disease on hemodialysis Plan Patient now on HD, BP is stable. Doing well. Remove fluid as tolerated. Seen by Psych. possible D/C today. 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 James in [place]. Problem Qualifiers (1) Anxiety disorder: Qualified Code: F41.9 - Anxiety disorder, unspecified type Chencho Alex MD Sep 07, 2016 17:09
== END 2016-09-07 18:30 | disposition home or self-care (01) | DRG 882 ==
LOC: H260 08:46
PROVIDERS: ADMIT Psychiatry & Neurology Psychiatry; ATTEND Psychiatry & Neurology Psychiatry
PROC: 5A1D60Z (ICD-10-PCS; principal; 2016-09-04)
DX: F43.23 Adjustment disorder with mixed anxiety and depressed mood (principal); N18.6 End stage renal disease; E11.22 Type 2 diabetes mellitus with diabetic chronic kidney disease; I12.0 Hypertensive chronic kidney disease with stage 5 chronic kidney disease or end stage renal disease; F32.1 Major depressive disorder, single episode, moderate; G89.29 Other chronic pain; M54.9 Dorsalgia, unspecified; Z99.2 Dependence on renal dialysis; R26.81 Unsteadiness on feet; R11.2 Nausea with vomiting, unspecified; F17.210 Nicotine dependence, cigarettes, uncomplicated; R42 Dizziness and giddiness; I44.0 Atrioventricular block, first degree; D63.1 Anemia in chronic kidney disease
CPT/HCPCS: 80053; 82306; 82607; 82728; 82746; 83540; 83550; 83735; 85025; 90935; 93005; Q0169